=== PATIENT | male | born 1985 | race Caucasian/White ===

== ENCOUNTER 2023-01-29 21:14 | Emergency (ER) | payer BC, SELFPAY ==
[2023-01-29 21:16] VITALS: BP 146/109; PULSE 132; RESP 16; TEMP 35.7; BMI 37.4
[2023-01-29 21:20] VITALS: BP 146/109; PULSE 132; RESP 18; TEMP 35.7
[2023-01-29] MEDS: 0.9% Normal Saline (1000mL) 1,000 ML 999 ML IV ×2 (22:34→23:44)
[2023-01-29] MEDS: Ondansetron 4 MG/2 ML Vial IV (22:34)
[2023-01-29] MEDS: Diphenoxylate/Atrop 1 Tablet 2 TABLET PO (22:34)
[2023-01-29 22:49] LABS: Absolute Lymphocyte Count 2.27 X10^3/uL (0.83-4.51); Absolute Neutrophil Count 6.9 X10^3/uL (2.0-7.7); Basophil# 0.04 X10^3/uL; Basophil% 0.4 % (0-1); Eosinophil# 0.17 X10^3/uL; Eosinophils% 1.6 % (0-5); Hematocrit 52.4 % (40-54); Lymphocyte # 2.27 X10^3/ul (0.83-4.51); Lymphocyte % 21.3 % (19-41); Mean Corp Hgb Conc 35.3 g/dL (32-36); Mean Corpuscular Hgb 32.1 pg (27.0-32.0); Mean Platelet Vol. 9.6 fl (6.2-12.0); Monocyte# 1.29 X10^3/uL; Monocyte% 12.1 % (0-10); NRBC Flagged by Analyzer 0 % (0-5); Neutrophil # 6.86 X10^3/uL (2.7-7.7); Neutrophil % 64.2 % (47-70); Platelet Count 380 K/mm3 (150-450); RBC Distribution Width CV 12.6 % (11.6-14.6); RBC Distribution Width SD 41.1 fl (35.1-43.9); Red Blood Count 5.76 M/mm3 (4.6-6.2); White Blood Count 10.7 K/mm3 (4.4-11.0)
[2023-01-29 22:58] LABS: Hemoglobin 18.5 g/dL (13.0-16.5)
[2023-01-29 23:18] LABS: AST(SGOT) 21 U/L (15-37); Alanine Aminotransfer ALT/SGPT 28 U/L (16-61); Albumin, Serum 4.3 g/dL (3.2-5.0); Alkaline Phosphatase 81 U/L (45-117); Anion Gap 8 (5-15); BUN 26 mg/dL (7-18); BUN/Creat Ratio 17.9 RATIO (10-20); Bilirubin, Direct 0.13 mg/dL (0.00-0.30); Calcium,Total 9.2 mg/dL (8.5-10.1); Chloride 106 mmol/L (98-107); Creatinine, Serum 1.45 mg/dL (0.70-1.30); EST Glomerular Filtration Rate 58 mL/min (>60); Est Glom Filt Rate - Afr Amer 70 mL/min (>60); Estimated Creatinine Clearance 75.82 ml/min; Globulin 4.6 g/dL (2.2-4.2); Glucose 109 mg/dL (74-106); Lipase 29 U/L (13-75); Magnesium 2.1 mg/dL (1.6-2.6); Potassium 3.9 mmol/L (3.5-5.1); Protein, Total 8.9 g/dL (6.4-8.2); Sodium Level 134 mmol/L (136-145)
[2023-01-29 23:46] VITALS: BP 124/84; PULSE 90; RESP 20; O2SAT 96
--- NOTE | 2023-01-30 00:15 | EDS_ITS ---
HPI History of Present Illness Chief Complaint: Abd Pain Informant: patient and spouse/S.O. Narrative Narrative: Patient is a 37-year-old male with no significant past medical history. He states that he was in [place] recently and returned home and then developed bouts of generalized abdominal discomfort with approximately 5-10 episodes of watery diarrhea per day. He denies any history of intestinal disease such as ulcer colitis or Crohn's disease. He denies any recent antibiotic use. He states that no one he was with developed similar symptoms. He is states he is concerned he has developed an infection from his travel outside the country and secondary to this comes in for evaluation [facility] Medical History no medical history Home Medications tirzepatide 7.5 mg/0.5 mL subcutaneous pen injector (Mounjaro) 7.5 mg subcut MO 01/29/23 [History Last Taken Unknown] ciprofloxacin HCl 500 mg tablet (Cipro) 500 mg PO BID 5 days #10 tabs 01/30/23 [Rx Last Taken Unknown] diphenoxylate-atropine 2.5 mg-0.025 mg tablet (Lomotil) 1 tab PO 4X/DAY PRN PRN diarrhea 5 days #20 tabs 01/30/23 [Rx Last Taken Unknown] cvkcervo-ltjxtz-WU-thonzonm 3.3 mg-3 mg-10 mg-0.5 mg/mL ear drops,susp (Cortisporin-TC) 5 drp LEFT EAR TID 10 days #10 mL 01/30/23 [Rx Last Taken Unknown] ondansetron 4 mg disintegrating tablet 4 mg PO TID PRN nausea and vomiting #21 tabs 01/30/23 [Rx Last Taken Unknown] Allergy/AdvReac Type Severity Reaction Status Date / Time No Known Allergies Allergy Verified 01/29/23 21:15 Surgical History (Updated 01/29/23 @ 22:37 by Yanique Pittman) Hx of tonsillectomy Social History Smoking Status: Former smoker ROS ROS ED Constitutional Constitutional ED: Denies chills or fever(s) ENT ENT ED: Denies sore throat Cardiovascular Cardiovascular: Denies chest pain Respiratory/Chest Respiratory/Chest: Denies cough or dyspnea Gastrointestinal Gastrointestinal: Reports abdominal pain, diarrhea and nausea; Denies vomiting Genitourinary Genitourinary ED: Denies dysuria Musculoskeletal Musculoskeletal: Denies myalgias Integumentary Denies rash Neurologic Neurologic: Denies headache(s) Hematologic/Lymphatic Hematologic/Lymphatic: Denies easy bleeding or easy bruising EXAM Physical Exam Const Vital Signs: 01/29/23 23:46 Pulse Rate 90 Respiratory Rate 20 H Blood Pressure 124/84 H Blood Pressure Mean 97 Pulse Ox 96 Oxygen Delivery Method Room Air Positive well nourished, well developed and obese General Appearance ED: well developed Nutritional Appearance: obese HEENT Reports dry mucous membranes HEENT Narrative: No signs of infection in the posterior pharynx Patient does have swelling and erythema of the left ear canal which is asymmetric when compared to right consistent with otitis externa. The bilateral TMs appear normal. There is no pain on palpation of either mastoid process. There is pain with external manipulation of the left ear. However no obvious signs to suggest malignant otitis externa. Mouth ED: Yes dry mucous membranes Mouth: dry mucous membranes Eyes PERRL and EOMs intact bilaterally General Eye ED: Negative for scleral icterus Neck supple Neck Narrative: No nuchal rigidity or meningeal signs noted Resp normal respiratory effort and clear to auscultation bilaterally Cardio regular rhythm Rate: tachycardic GI non-tender and non-distended GI Narrative: Abdomen is soft nontender and nondistended with hyperactive bowel sounds no voluntary guarding or rigidity no pulsatile mass Auscultation: hyperactive bowel sounds Palpation: soft Extremity normal to inspection Neuro oriented x3 and CN's II-XII intact bilaterally Sensorium / Orientation: alert Psych mental status grossly normal Skin no rashes or lesions noted Skin Narrative: Skin turgor is increased General Skin Exam: Negative for jaundice MDM MDM MDM Narrative Medical decision making narrative: Patient presented to the ER with physical exam findings consistent with dehydration. His history is most consistent with a secondary E. coli infection leading to his recurrent diarrhea especially with his recent travel outside the country. Differential diagnosis is for infectious diarrhea secondary to E. coli or Salmonella or Shigella versus viral gastroenteritis versus dehydration versus acute kidney injury. Blood work revealed changes consistent with mild dehydration but no significant electrolyte abnormality or signs of acute kidney injury. A stool sample was ordered based on potential of infectious diarrhea. He was given 2 L of fluid and Lomotil and had no further bouts of diarrhea while in the ER and also had improvement of vital signs with hydration. At this time with patient being rehydrated having improvement of his diarrhea and laboratory studies showing no signs of acute kidney injury or severe electrolyte derangement there is no need for admission. Based on his high risk for infectious diarrhea based on his recent travel I will place him on a 5-day course of ciprofloxacin. He also has otitis externa from his recent time in the water and he will be placed on Cortisporin secondary to this but he has no signs of malignant otitis externa or mastoiditis it does not need further evaluation History & Record Review Discussion w/independent historian: Patient and Significant other Lab Data Attestation: I reviewed the patient's lab results. Labs: Laboratory Results - last 24 hr 01/29/23 22:33 WBC 10.7 RBC 5.76 Hgb 18.5 H* Hct 52.4 MCV 91.0 MCH 32.1 H MCHC 35.3 RDW Std Deviation 41.1 RDW Coeff of Nola 12.6 Plt Count 380 MPV 9.6 Immature Gran % (Auto) 0.400 Neut % (Auto) 64.2 Lymph % (Auto) 21.3 [place] % (Auto) 12.1 H Eos % (Auto) 1.6 Baso % (Auto) 0.4 Absolute Neuts (auto) 6.9 Absolute Lymphs (auto) 2.27 Nucleated RBC % 0 Diff Path Review May foll Sodium 134 L Potassium 3.9 Chloride 106 Carbon Dioxide 20.0 L Anion Gap 8 BUN 26 H Creatinine 1.45 H Estim Creat Clear Calc 75.82 Est GFR (MDRD) Af Amer 70 Est GFR (MDRD) Non-Af 58 L BUN/Creatinine Ratio 17.9 Glucose 109 H Calcium 9.2 Magnesium 2.1 Total Bilirubin 0.80 Direct Bilirubin 0.13 AST 21 ALT 28 Alkaline Phosphatase 81 Total Protein 8.9 H Albumin 4.3 Globulin 4.6 H Lipase 29 Discharge Plan Triage Chief Complaint: Abd Pain ED Provider: Nilson Hartley Dx/Rx/DC Orders Clinical Impression: Diarrhea, Dehydration, Left otitis externa Instructions: Dehydration, ED Diarrhea, Unknown Cause Prescriptions: New ondansetron 4 mg tablet,disintegrating 4 mg PO TID PRN (Reason: nausea and vomiting) Qty: 21 0RF diphenoxylate-atropine [Lomotil] 2.5-0.025 mg tablet 1 tab PO 4X/DAY PRN PRN (Reason: diarrhea) 5 Days Qty: 20 0RF ciprofloxacin HCl [Cipro] 500 mg tablet 500 mg PO BID 5 Days Qty: 10 0RF Cortisporin-TC 3.3-3-10-0.5 mg/mL drops,suspension 5 drp LEFT EAR TID 10 Days Qty: 10 0RF No Action Mounjaro 7.5 mg/0.5 mL pen injector 7.5 mg SUBCUT MO Patient Comments: Inject 0.5 mLs into the skin once a week Primary Care Provider: Care Physician,No Primary Referrals: Care Physician,No Primary [Primary Care Provider] - Activity Restrictions/Additional Instructions: Your work-up shows dehydration secondary to your recurrent diarrhea which is most likely from an infectious source as you have traveled outside the country. Take antibiotic as directed to help resolve this and keep yourself well- hydrated. Follow-up with your family doctor or return to the ER should you have any further concerns or persistent or worsening symptoms Disposition Disposition: Home, Self Care Discharge Date/Time: 01/30/23 01:02
[2023-01-31 13:41] LABS: Pathologist Review Reviewed
== END 2023-01-30 01:02 | disposition home or self-care (01) ==
PROVIDERS: Emergency Provider Emergency Medicine; Visit Provider Emergency Medicine
DX: R19.7 Diarrhea, unspecified (principal); E86.0 Dehydration; H60.92 Unspecified otitis externa, left ear; E66.9 Obesity, unspecified; Z87.891 Personal history of nicotine dependence
CPT/HCPCS: 80048; 80076; 83690; 83735; 85025; 87506; 96374; 99283; J7030; A4216; J2405